=== PATIENT | female | born 1940 | race American Indian/Alaskan Native ===

== ENCOUNTER 2016-12-21 09:57 | Outpatient (CLI) | payer MEDICARE ==
--- NOTE | 2016-12-21 11:08 | XRay Report ---
XRAY LUMBAR SPINE THREE VIEWS: 12/21/16 09:57:00 CLINICAL: Right leg pain. FINDINGS: The lumbar spine is hyperextended. Grade I L4-5 spondylolisthesis with no pars defect identified. The rest of the bodies are normal alignment. Normal vertebral body height. L5-S1 disc space narrowing with vacuum disc phenomenon. Facet joint sclerosis at all levels. The pedicles are intact. No fracture. Prominent lateral osteophytes at multiple levels and minimal anterior osteophytes. IMPRESSION: 1.Grade I L4-5 spondylolisthesis with no pars defect identified. 2. L5-S1 degenerative disc disease. 3. 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
== END 2016-12-21 09:58 | disposition home or self-care (01) ==
LOC: XRAY 09:57
PROVIDERS: ATTEND Family Medicine
DX: M51.37 Other intervertebral disc degeneration, lumbosacral region (principal); M43.17 Spondylolisthesis, lumbosacral region; M12.88 Other specific arthropathies, not elsewhere classified, other specified site; M25.78 Osteophyte, vertebrae; M79.604 Pain in right leg
CPT/HCPCS: 72100

== ENCOUNTER 2017-05-31 11:02 | Outpatient (CLI) | payer MEDICARE ==
--- NOTE | 2017-06-01 08:02 | Magnetic Resonance Report ---
MRI LUMBAR SPINE WITHOUT CONTRAST HISTORY: Lumbar radiculopathy. TECHNIQUE: axial T1, T2. sagittal T1,T2, STIR. COMPARISON: No previous MR. Correlation is made with the lumbar spine films dated 12/21/16. FINDINGS: The conus terminates at L1 level. No signal abnormality or mass. The cauda equina is within normal limits. MR demonstrates 3 mm anterolisthesis L3 with respect to L4. There is also a 5 mm anterolisthesis of L4 respect to L5. This appears to be secondary to degenerative facet arthropathy at both levels. No pars defect is identified. The remaining lumbar vertebra are normal in alignment. There is normal bone marrow signal. No evidence for fracture or bone lesion. Disc desiccation is present at all levels. There is advanced disc space narrowing at L5-S1. Moderate to severe facet arthropathy is present at all levels. There are hypertrophic osteoarthritic changes in the facet joints at L3-4 and L4-5. L1-2: A mild bulging disc and mild facet arthropathy are identified. No stenosis. L2-3: A mild bulging disc and mild facet arthropathy are identified. No stenosis. L3-4: A mild posterior bulging disc is identified. Moderate hypertrophic facet arthropathy and hypertrophy of the ligamentum flavum is identified. There is minimal spinal canal narrowing at this level measuring 9 mm in AP dimension. Bilateral neural foraminal narrowing is estimated at 50%. L4-5: A mild diffuse posterior bulging disc is identified. Moderate to severe hypertrophic facet arthropathy and thickening of the ligamentum flavum. There is moderate central canal narrowing measuring 7 mm in AP dimension. Right neural foraminal narrowing is estimated at 50%. Left neural foraminal narrowing is estimated at 75%. L5-S1: A moderate diffuse posterior spur disc complex is identified. Mild facet arthropathy. No central canal stenosis. Bilateral neural foraminal narrowing is estimated at 50%. IMPRESSION: Multilevel lumbar spondylosis as described above. L4-5 appears to be the most affected level. Grade 1 anterolisthesis of L3 with respect to L4 and L4 with respect L5 secondary to degenerative facet arthropathy. No evidence for acute injury.
== END 2017-05-31 11:03 | disposition home or self-care (01) ==
LOC: MRI 11:02
PROVIDERS: ATTEND Family Medicine
DX: M47.26 Other spondylosis with radiculopathy, lumbar region (principal); M12.88 Other specific arthropathies, not elsewhere classified, other specified site; M79.604 Pain in right leg
CPT/HCPCS: 72148